=== PATIENT | male | born 2000 | race Hispanic/Latino ===

== ENCOUNTER 2020-06-03 17:14 | Outpatient (CLI) | payer SELFPAY ==
--- NOTE | 2020-06-03 17:53 | RAD ---
PA AND LATERAL CHEST: Date: 05/03/2020 HISTORY: Evaluation for TB. FINDINGS: Heart size and mediastinum are within normal limits. The lungs are clear of any infiltrative process. No significant bony findings. IMPRESSION: No active intrathoracic disease. POS: [id number]
== END 2020-06-03 17:15 | disposition home or self-care (01) ==
LOC: MADRAD 17:14
PROVIDERS: ATTEND Family Medicine
DX: R76.11 Nonspecific reaction to tuberculin skin test without active tuberculosis (principal); Z92.29 Personal history of other drug therapy
CPT/HCPCS: 71046